=== PATIENT | male | born 1965 | race Caucasian/White ===

== ENCOUNTER 2018-05-26 20:21 | Emergency (ER) | payer SELFPAY ==
[2018-05-26] MEDS ORDERED: Aspirin 81 MG Tab.Chew PO ONE (20:37)
[2018-05-26] MEDS ORDERED: Sodium Chloride 0.9% 10 ML Syringe FLUSH PRN (20:37)
[2018-05-26] MEDS ORDERED: Codeine/Promethazine 10-6.25 MG/5 ML Syrup 5 ML UD Cup PO ONE (22:01)
[2018-05-26] MEDS ORDERED: Albuterol 6.7 GM Inhaler INH ONE (22:01)
--- NOTE | 2018-05-26 23:14 | EDM.PDOC ---
ED HPI GENERAL MEDICAL PROBLEM - General Chief Complaint: General Stated Complaint: HEART ISSUES Time Seen by Provider: 05/26/18 20:37 Source of Information: Reports: Patient History Limitations: Reports: No Limitations - History of Present Illness INITIAL COMMENTS - FREE TEXT/NARRATIVE: The patient presents from home with an abnormal EKG. The patient has had a cough, congestion and runny nose with some shortness of breath for about a week. He went to the clinic today at [facility] and saw Hanna Perry. She did a CXR that did not show any infiltrates. He also had an EKG and some lab work. He was called [facility] to come into the ER because his EKG showed a possible inferior CT. He has no chest pain. He has a cold and cough and now bronchitis. Hanna Espana put him on some zithromax. He has no history of hypertension, diabetes or hypercholesterolemia. He does not smoke. Onset: Gradual Duration: Day(s): Severity: Moderate Improves with: Reports: None Worsens with: Reports: None Associated Symptoms: Reports: Cough, Fever/Chills, Shortness of Breath. Denies : Chest Pain, Headaches, Nausea/Vomiting - Related Data Allergies Allergy/AdvReac Type Severity Reaction Status Date / Time No Known Allergies Allergy Verified 12/22/13 07:24 Home Meds: Home Meds Azithromycin [Zithromax] 250 mg PO DAILY 05/26/18 [History] ED ROS GENERAL - Review of Systems Review Of Systems: See Below Constitutional: Reports: Fever, Chills HEENT: Reports: Other (congestion and runny nose) Respiratory: Reports: Shortness of Breath, Cough Cardiovascular: Reports: No Symptoms Endocrine: Reports: No Symptoms GI/Abdominal: Reports: No Symptoms : Reports: No Symptoms Musculoskeletal: Reports: No Symptoms ED EXAM, GENERAL - Physical Exam Exam: See Below Exam Limited By: No Limitations General Appearance: Alert, No Apparent Distress Ears: Normal External Exam Nose: Normal Inspection Head: Atraumatic, Normocephalic Neck: Normal Inspection Respiratory/Chest: No Respiratory Distress, Lungs Clear, Normal Breath Sounds Cardiovascular: Regular Rate, Rhythm, No Edema, No Murmur GI/Abdominal: Soft, Non-Tender, No Organomegaly, No Mass Back Exam: Normal Inspection Extremities: Normal Inspection EKG INTERPRETATION EKG Date: 05/26/18 Time: 20:29 Rhythm: Other (sinus tachycardia) Rate (Beats/Min): 118 [place]: Normal P-Wave: Present QRS: Normal ST-T: Normal QT: Normal EKG Interpretation Comments: Q wave in lead III Course - Vital Signs Last Recorded V/S: Last Vital Signs Temp 100.0 F 05/26/18 20:35 Pulse 121 H 05/26/18 20:35 Resp 22 H 05/26/18 20:35 BP 140/99 H 05/26/18 20:35 Pulse Ox 95 05/26/18 22:18 - Orders/Labs/Meds Orders: Active Orders 24 hr Category Date Time Status Cardiac Monitoring [RC] . DIRECTED Care 05/26/18 20:37 Active EKG Documentation Completion [RC] STAT Care 05/26/18 20:37 Active Peripheral IV Care [RC] . DIRECTED Care 05/26/18 20:38 Active Sodium Chloride 0.9% [Saline Flush] Med 05/26/18 20:37 Active 10 ml FLUSH ASDIRECTED PRN Peripheral IV Insertion Adult [OM.PC] Stat Oth 05/26/18 20:37 Ordered Medication Orders Sodium Chloride (Saline Flush) 10 ml FLUSH ASDIRECTED PRN PRN Reason: Keep Vein Open Last Admin: 05/26/18 20:56 Dose: 10 ml Labs: Laboratory Tests 05/26/18 05/26/18 05/26/18 Range/Units 20:42 20:42 20:42 WBC 6.90 (4.23-9.07) K/mm3 RBC 5.35 (4.63-6.08) M/mm3 Hgb 15.7 (13.7-17.5) gm/L Hct 46.7 (40.1-51.0) % MCV 87.3 (79.0-92.2) fl MCH 29.3 (25.7-32.2) pg MCHC 33.6 (32.2-35.5) g/dl RDW Std Deviation 42.6 (35.1-43.9) fL Plt Count 206 (163-337) K/mm3 MPV 10.4 (9.4-12.3) fl Neut % (Auto) 63.4 (34.0-67.9) % Lymph % (Auto) 21.2 L (21.8-53.1) % Powell % (Auto) 13.0 H (5.3-12.2) % Eos % (Auto) 2.0 (0.8-7.0) Baso % (Auto) 0.3 (0.1-1.2) % Neut # (Auto) 4.37 (1.78-5.38) K/mm3 Lymph # (Auto) 1.46 (1.32-3.57) K/mm3 Powell # (Auto) 0.90 H (0.30-0.82) K/mm3 Eos # (Auto) 0.14 (0.04-0.54) K/mm3 Baso # (Auto) 0.02 (0.01-0.08) K/mm3 D-Dimer, Quantitative 0.39 (0.19-0.50) mg/L Sodium 137 (136-145) mEq/L Potassium 4.2 (3.5-5.1) mEq/L Chloride 103 (98-107) mEq/L Carbon Dioxide 22 (21-32) mEq/L Anion Gap 16.2 H (5-15) BUN 16 (7-18) mg/dL Creatinine 1.3 (0.7-1.3) mg/dL Est Cr Clr Drug Dosing 77.28 mL/min Estimated GFR (MDRD) 58 (>60) mL/min BUN/Creatinine Ratio 12.3 L (14-18) Glucose 132 H (74-106) mg/dL Calcium 8.9 (8.5-10.1) mg/dL Total Bilirubin 0.4 (0.2-1.0) mg/dL AST 33 (15-37) U/L ALT 69 H (16-63) U/L Alkaline Phosphatase 95 (46-116) U/L Troponin I < 0.017 (0.00-0.056) ng/mL Total Protein 7.4 (6.4-8.2) g/dl Albumin 3.7 (3.4-5.0) g/dl Globulin 3.7 gm/dL Albumin/Globulin Ratio 1.0 (1-2) 05/26/18 Range/Units 23:08 WBC (4.23-9.07) K/mm3 RBC (4.63-6.08) M/mm3 Hgb (13.7-17.5) gm/L Hct (40.1-51.0) % MCV (79.0-92.2) fl MCH (25.7-32.2) pg MCHC (32.2-35.5) g/dl RDW Std Deviation (35.1-43.9) fL Plt Count (163-337) K/mm3 MPV (9.4-12.3) fl Neut % (Auto) (34.0-67.9) % Lymph % (Auto) (21.8-53.1) % Powell % (Auto) (5.3-12.2) % Eos % (Auto) (0.8-7.0) Baso % (Auto) (0.1-1.2) % Neut # (Auto) (1.78-5.38) K/mm3 Lymph # (Auto) (1.32-3.57) K/mm3 Powell # (Auto) (0.30-0.82) K/mm3 Eos # (Auto) (0.04-0.54) K/mm3 Baso # (Auto) (0.01-0.08) K/mm3 D-Dimer, Quantitative (0.19-0.50) mg/L Sodium (136-145) mEq/L Potassium (3.5-5.1) mEq/L Chloride (98-107) mEq/L Carbon Dioxide (21-32) mEq/L Anion Gap (5-15) BUN (7-18) mg/dL Creatinine (0.7-1.3) mg/dL Est Cr Clr Drug Dosing mL/min Estimated GFR (MDRD) (>60) mL/min BUN/Creatinine Ratio (14-18) Glucose (74-106) mg/dL Calcium (8.5-10.1) mg/dL Total Bilirubin (0.2-1.0) mg/dL AST (15-37) U/L ALT (16-63) U/L Alkaline Phosphatase (46-116) U/L Troponin I < 0.017 (0.00-0.056) ng/mL Total Protein (6.4-8.2) g/dl Albumin (3.4-5.0) g/dl Globulin gm/dL Albumin/Globulin Ratio (1-2) Meds: Medications Generic Name Dose Route Start Last Admin Trade Name Freq PRN Reason Stop Dose Admin Sodium Chloride 10 ml 05/26/18 20:37 05/26/18 20:56 Saline Flush FLUSH 10 ml ASDIRECTED PRN Administration Keep Vein Open Discontinued Medications Generic Name Dose Route Start Last Admin Trade Name Shahzad PRN Reason Stop Dose Admin Albuterol 1 gm 05/26/18 22:01 05/26/18 22:12 Proventil Hfa INH 05/26/18 22:02 2 puff ONETIME ONE Administration Aspirin 324 mg 05/26/18 20:37 05/26/18 20:56 Aspirin PO 05/26/18 20:38 324 mg ONETIME ONE Administration Promethazine HCl/Codeine 10 ml 05/26/18 22:01 05/26/18 22:05 Phenergan With Codeine PO 05/26/18 22:02 10 ml ONETIME ONE Administration - Re-Assessments/Exams Free Text/Narrative Re-Assessment/Exam: 05/26/18 23:15 I ordered an IV saline lock, aspirin, EKG, and labs. His EKG shows a Q wave in lead III but nothing acute. I have the report from his CXR today and there was no infiltrates. 05/26/18 23:16 His CBC is normal. His D-dimer was negative. His glucose was slightly elevated at 132. His ALT was elevated at 69. His troponin is negative. He still has a productive cough so I ordered an albuterol inhaler and some phenergan with codeine for the cough. I have also ordered an influenza and repeat troponin. 05/26/18 23:41 The influenza is negative and troponin is negative. I will keep him on the albuterol and give him some phenergan with codeine. Departure - Departure Time of Disposition: 23:45 Disposition: Home, Self-Care 01 Condition: Good Clinical Impression: Bronchitis - Discharge Information *PRESCRIPTION DRUG MONITORING PROGRAM REVIEWED*: No *COPY OF PRESCRIPTION DRUG MONITORING REPORT IN PATIENT ROMA: No Referrals: Sandra Perry NP [Primary Care Provider] - 1 Week Forms: ED Department Discharge Additional Instructions: Keep taking the z-casa. Use the albuterol inhaler 2 puffs every 6 hours as needed for shortness of breath. Use the phenergan with codeine every 6 hours as needed for cough. Please return if you are worse. - My Orders Last 24 Hours: My Active Orders 05/26/18 20:37 Cardiac Monitoring [RC] . DIRECTED EKG Documentation Completion [RC] STAT Sodium Chloride 0.9% [Saline Flush] 10 ml FLUSH ASDIRECTED PRN Peripheral IV Insertion Adult [OM.PC] Stat 05/26/18 20:38 Peripheral IV Care [RC] . DIRECTED - Assessment/Plan Last 24 Hours: My Active Orders 05/26/18 20:37 Cardiac Monitoring [RC] . DIRECTED EKG Documentation Completion [RC] STAT Sodium Chloride 0.9% [Saline Flush] 10 ml FLUSH ASDIRECTED PRN Peripheral IV Insertion Adult [OM.PC] Stat 05/26/18 20:38 Peripheral IV Care [RC] . DIRECTED
== END 2018-05-26 23:53 | disposition home or self-care (01) ==
LOC: JD.ED 20:21
DX: J40 Bronchitis, not specified as acute or chronic (principal)
CPT/HCPCS: 36415; 80053; 84484; 85025; 85379; 87804; 93005; 94640; 99285; A9270; 99283